=== PATIENT | male | born 1995 | race Caucasian/White ===

== ENCOUNTER 2017-11-23 00:23 | Emergency (ER) | payer OTHER ==
[~2017-11-23] VITALS: Ht 170.2 cm; Wt 59.0 kg
== END 2017-11-23 05:48 | disposition home or self-care (01) ==
LOC: ED 00:23
DX: R45.851 Suicidal ideations (principal)
CPT/HCPCS: 80053; 80176; 81001; 84443; 85025; 99284; G0480